=== PATIENT | female | born 1990 | race Asian ===

== ENCOUNTER 2018-09-30 18:40 | Inpatient (IN) | payer OTHER ==
[2018-09-30] MEDS ORDERED: Promethazine INJ(RESTRICTED)* 25 MG/ML 1 ML VIAL IM ONE (22:32)
[2018-09-30] MEDS ORDERED: Promethazine INJ(RESTRICTED)* 25 MG/ML 1 ML VIAL IV ONE (22:32)
[2018-09-30] MEDS ORDERED: Nalbuphine* 10 MG/ML 1 ML VIAL IV ONE (22:32)
[2018-09-30] MEDS ORDERED: Nalbuphine* 10 MG/ML 1 ML VIAL IM ONE (22:32)
--- NOTE | 2018-09-30 22:44 | PN ---
L&D Outpatient: Visit - Reproductive Information Estimated Due Date: 10/05/18 Gestational Age: 39 Weeks and 2 Days : 1 Para: 0 - Reason for Visit Visit Reason: Pt reports ctx starting at 0500 this morning. Initially every 20 minutes, now every 5-7 minutes - Antepartal Records Antepartal Record: Reviewed, Complicated by: - hypothyroidism - Patient History Patient History Significant: Yes Patient History Significant For: hypothyroidism Review of Systems Constitutional: Uncomfortable CV Complaint: No Respiratory: Shortness of Breath: No Gastrointestinal: No Nausea/Vomiting, Normal Bowel Movement Genitourinary: No Dysuria, No Bleeding, No Leaking Fluid Musculoskeletal: No Epigastric Pain, Contractions Neurological: No Headache, No Visual Changes Movement: Normal L&D Outpatient: Exam Vitals - Most Recent: T-98.5, P-75, R-18, BP-103/56, O2-99% - Cervical Exam Cervical Exam: 2cm/ 90%/ -1/ vtx - Abdominal Exam Abdomen Exam: Non-Tender, Fundal Height Consistent with Dates - Membranes Membrane Status: Intact - Ultrasound/Biophysical Profile Ultrasound Status: Not Done EFM Findings - External Monitor Findings Baseline Heart Rate: 135 External Monitor Findings: Accelerations Present, No Pattern of Variable or Late Decelerations, Variability Moderate, Baseline Stable Contractions: Regular, Mild, Moderate, 45-90 Seconds Contraction Frequency: 5-7 minutes L&D Outpatient: Asses/Plan Assessment: 28 year old at 39 2/7 weeks gestation in early vs prodromal labor, GBS negative, membranes intact, with no evidence of acidemia. Plan: Continue Observation - Cervix has not dilated, but has thinned since pt's arrival. Pt offered option of discharge home vs continued observation vs therapeutic rest. Pt prefers to try therapeutic rest. Order given for Nubain and Phenergan. Will admit if she becomes active. Intermittant monitoring.
[2018-10-01 01:18] LABS: ABS Basophils 0.1 10^3/ul (0-0.2); ABS Eosinophils 0.1 10^3/ul (0-0.6); ABS Monocytes 0.9 10^3/ul (0-0.8); ABS Neutrophils 11.3 10^3/ul (1.5-7.7); ABS Nucleated RBC 0 10^3/ul; Eosinophil % 0.5 %; Hematocrit 43 % (35-47); Lymphocyte % 7.8 %; Mean Corpuscular HGB Conc 33 g/dl (31-36); Mean Corpuscular Hemoglobin 31 pg (27-31); Mean Corpuscular Volume 94 fL (80-97); Mean Platelet Volume 9.3 fL (7.4-10.4); Nucleated Red Blood Cells % 0.1; Platelet Count 153 10^3/ul (150-450); Red Blood Count 4.54 10^6/ul (4.00-5.40); Red Cell Distribution Width 13 % (10.5-15); White Blood Count 13.3 10^3/ul (3.5-10.8)
--- NOTE | 2018-10-01 01:18 | HP ---
General Information - Reason for Visit Pt here for labor evaluation. She reports she started to experience contractions yesterday at 0500, but that they were only every 20 minutes at that time. They increased in frequency and intensity throughout the day. On arrival to unit she was 2cm/ 50% effaced, apple every 5-7 minutes. She has progressed to 3 cm/ 100% and is currently apple every 1-3 minutes. - General Information Maternal Age: 28 Grav: 1 Para: 0 SAB: 0 IEA: 0 Estimated Due Date: 10/05/18 Determined By: LMP Maternal Blood Type and Rh: O Positive - Results this Serology/RPR Result: Non-Reactive Rubella Result: Immune HBsAg Result: Negative HIV Result: Negative GBS Culture Result: Negative Past Medical History Delivery History: See Records - Primigravida Pertinent Past Medical History: See Records - Hypothyroidism Pertinent Past Surgical History: None Pertinent Family History: Non-Contributory - Antepartal Records Antepartal Records: Reviewed, Complicated by: - hypothyroidism, late transfer of care from [place] Review of Systems Constitutional: Uncomfortable CV Complaint: No Respiratory: Shortness of Breath: No Gastrointestinal: No Nausea/Vomiting, Normal Bowel Movement Genitourinary: No Dysuria, No Bleeding, No Leaking Fluid Musculoskeletal: No Epigastric Pain, Contractions Neurological: No Headache, No Visual Changes Movement: Normal Exam Allergies/Adverse Reactions: Allergies No Known Allergies Allergy (Verified 09/30/18 19:40) T-98.5, P-65, R-18, BP-103/56, O2-99% - Measurements Height: 5 ft 3 in Weight: 60.781 kg Weight in lbs: 134.825065 Body Mass Index (BMI): 23.7 Pre- Weight: 50.802 kg Weight Gained This : 22 lbs and 0 ozs - Exam Breast: Breast Exam Deferred CVA: No CVA Tenderness Extremities: No Edema Heart: Normal Rhythm/Heart Sounds HEENT: No Significant Findings Lungs: Clear Bilaterally Rectal: Rectal Exam Deferred Reflexes: DTR 2+ Thyroid: No Thyromegaly - Abdominal Exam Abdomen Exam: Non-Tender, Fundal Height Consistent with Dates - Ultrasound/Biophysical Profile Ultrasound Status: Not Done Targeted Exam Findings See L&D Outpatient Visit Provider Note for Findings: Yes Estimated Weight: 7# Cervical Exam: 3cm Effacement: 100% Station: 0 Presenting Part: Vertex Membrane Status: Intact Bleeding/Discharge: Bloody Show EFM Findings - External Monitor Findings Baseline Heart Rate: 135 External Monitor Findings: Accelerations Present, No Pattern of Variable or Late Decelerations, Variability Moderate, Baseline Stable Contractions: Regular, Moderate, 45-90 Seconds Contraction Frequency: 1-3 Assessment/Plan - Assessment 28 year old at 39 3/7 weeks gestation in active labor, GBS negative, membranes intact, with no evidence of acidemia - Plan Plan: Admit - Anticipate Vaginal Delivery Plan Comment: Pt to be admitted to labor and delivery. Pt requesting epidural for pain relief. Discussed other options with pt, including use of tub, positioning, etc. due to her still being early in the labor process, but she is very uncomfortable and would like epidural at this time. Briefly discussed procedure , risks and benefits. Dr. Bennett notified. Will do continuous EFM once epidural placed. Will recheck cervix once pt is comfortable with epidural, consider AROM or augmentation if needed. - Date/Time of Admission Date of Admission: 10/01/18 Time of Admission: 00:55
[2018-10-01] MEDS ORDERED: OBEPIDURAL* 250 ML EPIDURAL ONE (01:34)
[2018-10-01] MEDS ORDERED: Phenylephrine IV* 40 MCG/ML 10 ML SYRINGE IV PUSH PRN (02:17)
[2018-10-01] MEDS ORDERED: Sodium Citrate/Citric Acid* 15 ML UDC PO PRN (02:17)
[2018-10-01] MEDS ORDERED: OBEPIDURAL* 250 ML EPIDURAL SCH (03:00)
[2018-10-01] MEDS: Phenylephrine IV* 40 MCG/ML 10 ML SYRINGE IV PUSH PRN ×2 (08:59→09:04)
[2018-10-01] MEDS: Levothyroxine TAB* 50 MCG TAB PO SCH (10:13)
[2018-10-01] MEDS ORDERED: Oxytocin in LR* 20 UNITS/1,000 ML BAG IVPB ONE (14:21)
[2018-10-01] MEDS ORDERED: Misoprostol TAB* 200 MCG ONE (14:28)
[2018-10-01] MEDS ORDERED: Misoprostol TAB* 200 MCG PR ONE (15:29)
[2018-10-01] MEDS ORDERED: Acetaminophen TAB* 325 MG PO PRN (15:29)
[2018-10-01] MEDS ORDERED: Glycerin ADULT SUPP PR PRN (15:29)
--- NOTE | 2018-10-01 15:43 | PROCNOTE ---
[facility] OB: Delivery Note - Delivery A Date of : 10/01/18 Time of : 14:12 [place] Sex: Male Weight at : 3.139 kg Score 1 Minute: 9 Score 5 Minutes: 9 Gestational Age in Weeks and Days at Delivery: 39 Weeks and 3 Days Delivery Method: Spontaneous Vaginal Labor: Spontaneous Did Patient attempt ?: N/A, No Previous Amniotic Fluid: Clear Estimated Blood Loss: 450 Anesthesia/Analgesia: CEI for Labor Delivered By: Verónica Bowie - Nursery Level of Nursery: Regular/Bedside - Perineum Perineal Injury: Perineal Laceration, 2nd Degree Perineal Injury Comment: and left labial Perineal Repair: By Delivering Practioner - Events Delivery Events of Note: Pitocin Only After Delivery, Supplemental O2 to Mother - Risk for Falls Delivered OB Patient- Risk for Falls: Heavy Bleeding Fall Risk: Patient is at High Risk for Falls - Additional Delivery Notes Additional Delivery Notes: Pt presented to labor and delivery in early labor at 2cm dilation. Over the next few hours, pt became more effaced, but remained at 2cm. Pt given therapeutic rest with Nubain and Phenergan, but soon after contractions became more frequent and pt did not experience relief for long. Pt then found to be 3cm dilated and requested an epidural. Pt admitted to labor and delivery at that time. Epidural placed by Dr. Bennett, providing pt with good relief. Soon after epidural placed, infant had prolonged deceleration to 60's. Deceleration lasted 8 minutes, during which time the heart rate increased into the 100s and then dropped back down into the 60s three times. Intrauterine resuscitation measures included position changes, IV fluid boluses, administration of phenylephrine and oxygen. recovered to baseline with these measures and did not have any further significant decelerations until the pushing phase. Pt progressed gradually but steadily. When pt was 8cm, contractions had spaced out and AROM was performed with pt consent to clear fluid. Pt continued to progress and soon reached full dilation. At that time pt coached on pushing. Pt pushed with good effort. During pushing stage there was a single deceleration to the 60 's lasting 90 seconds, which resolved with position change. Infant made slow but steady descent to . Head delivered OP to LOP with compound hand. Shoulders then passed easily. Infant with short cord, placed on lower maternal abdomen with vigorous cry, HR> 100. After cord pulsation ceased, cord clamped x2 and cut, to maternal chest. Placenta followed spontaneously, sherri side with trailing membranes teased out with ring forceps, appeared complete. Uterine tone initially firm but became boggy, oxytocin 20 mu in 1L initiated. Clots expressed from lower uterine segment and Cytotec 800 mcg given MI. Fundus became and remained firm and subsequent bleeding was minimal. Inspection of the perineum revealed 2nd degree perineal laceration and left labial laceration. These were repaired using absorbable suture with good hemostasis and tissue approximation. and mother stable at this time. Anticipate normal course.
[2018-10-01] MEDS ORDERED: Oxytocin in LR* 20 UNITS/1,000 ML BAG IVPB SCH (16:00)
[2018-10-01] MEDS: Ibuprofen TAB* 600 MG PO PRN (16:55)
[2018-10-01] MEDS: Dibucaine 1% 28.35 GM TUBE PR PRN (16:57)
[2018-10-01] MEDS: Witch Hazel PAD* JAR TOPICAL PRN (16:57)
[2018-10-01] MEDS ORDERED: Phenylephrine IV* 40 MCG/ML 10 ML SYRINGE ONE (19:11)
[2018-10-01] MEDS: Docusate CAP* 100 MG PO SCH (20:28)
[2018-10-02] MEDS: Levothyroxine TAB* 50 MCG TAB PO SCH (06:00)
[2018-10-02 06:47] LABS: ABS Basophils 0.1 10^3/ul (0-0.2); ABS Eosinophils 0.2 10^3/ul (0-0.6); ABS Lymphocytes 1.4 10^3/ul (1.0-4.8); ABS Monocytes 0.9 10^3/ul (0-0.8); ABS Neutrophils 10.1 10^3/ul (1.5-7.7); ABS Nucleated RBC 0 10^3/ul; Eosinophil % 1.2 %; Hematocrit 28 % (35-47); Hemoglobin 9.6 g/dl (12.0-16.0); Lymphocyte % 10.9 %; Mean Corpuscular HGB Conc 34 g/dl (31-36); Mean Corpuscular Hemoglobin 32 pg (27-31); Mean Corpuscular Volume 93 fL (80-97); Mean Platelet Volume 9.3 fL (7.4-10.4); Nucleated Red Blood Cells % 0; Platelet Count 123 10^3/ul (150-450); Red Blood Count 3.03 10^6/ul (4.00-5.40); Red Cell Distribution Width 13 % (10.5-15); White Blood Count 12.6 10^3/ul (3.5-10.8)
[2018-10-02] MEDS: Ferrous Gluconate TAB* 324 MG TAB PO SCH ×2 (09:43→20:22)
[2018-10-02] MEDS: Docusate CAP* 100 MG PO SCH ×3 (09:43→20:22)
[2018-10-02] MEDS: Dibucaine 1% 28.35 GM TUBE PR PRN ×2 (11:49→20:22)
[2018-10-02] MEDS: Ibuprofen TAB* 600 MG PO PRN (17:09)
[2018-10-02] MEDS: Witch Hazel PAD* JAR TOPICAL PRN (20:22)
[2018-10-03] MEDS: Levothyroxine TAB* 50 MCG TAB PO SCH (07:18)
[2018-10-03] MEDS: Docusate CAP* 100 MG PO SCH ×2 (08:49→13:12)
[2018-10-03] MEDS: Ferrous Gluconate TAB* 324 MG TAB PO SCH (08:49)
[2018-10-03] MEDS: Ibuprofen TAB* 600 MG PO PRN (13:12)
[2018-10-03 17:29] VITALS: BP 92/48
== END 2018-10-03 16:16 | disposition home or self-care (01) | DRG 807 ==
LOC: MCHOBOUT 18:40 → MCHOB 10-01 00:55
PROVIDERS: ADMIT Midwife; ATTEND Midwife
PROC: 10E0XZZ Delivery of Products of Conception, External Approach (ICD-10-PCS; principal; 2018-10-01)
PROC: 0KQM0ZZ Repair Perineum Muscle, Open Approach (ICD-10-PCS; 2018-10-01)
PROC: 10907ZC Drainage of Amniotic Fluid, Therapeutic from Products of Conception, Via Natural or Artificial Opening (ICD-10-PCS; 2018-10-01)
DX: O99.284 Endocrine, nutritional and metabolic diseases complicating childbirth (principal); Z37.0 Single live birth; E03.9 Hypothyroidism, unspecified; O90.81 Anemia of the puerperium; D64.9 Anemia, unspecified; O70.1 Second degree perineal laceration during delivery; Z3A.39 39 weeks gestation of pregnancy
CPT/HCPCS: 36415; 85025; 86850; 86900; 86901; A9270-GY; J2300; J2550